=== PATIENT | female | born 1990 | race Caucasian/White ===

== ENCOUNTER 2023-10-08 17:40 | Emergency (ER) | payer OTHER, SELFPAY ==
[2023-10-08 17:47] VITALS: BP 124/72; BMI 25.9
[2023-10-08 18:13] LABS: % Basophils 0.5 % (0-2); % Eosinophils 0.8 % (0-6); % Immature Granulocytes 0.2 % (0-0.5); % Lymphocytes 29.3 % (20.5-51.1); % Monocytes 7.3 % (1.7-9.3); % Neutrophils 61.9 % (42.2-75.2); Absolute Eosinophils 0.1 10^3/uL (0-0.7); Absolute Lymphocytes 1.8 10^3/uL (1.2-3.4); Absolute Monocytes 0.4 10^3/uL (0.1-0.6); Absolute Neutrophils 3.7 10^3/uL (1.4-6.5); Hematocrit 40.3 % (37.0-47.0); Hemoglobin 13.8 g/dL (12.0-16.0); Mean Corp Hgb Conc. 34.2 g/dL (33.0-37.0); Mean Corpuscular Hgb 29.6 pg (27.0-31.0); Mean Corpuscular Volume 86.5 fL (81.0-99.0); Mean Platelet Volume 10.7 fL (7.4-10.4); Nucleated Red Blood Cells % 0 %; Platelet Count 249 10^3/uL (130-400); Red Blood Cell Count 4.66 10^6/uL (4.20-5.40); Red Cell Dist. Width 12.5 % (11.5-14.5); Urine Albumin Trace (Neg - Trace); Urine Bilirubin 1+ (Negative); Urine Character Clear (Clear); Urine Color Yellow; Urine Glucose Negative (Negative); Urine Ketone Trace (Negative); Urine Leukocyte 1+ (Negative); Urine Nitrite Negative (Negative); Urine Occult Blood Negative (Negative); Urine Urobilinogen Negative (Neg - 1+)
[2023-10-08 18:22] LABS: Urine Squamous Cell >30 /LPF (Few)
[2023-10-08 18:23] LABS: Urine Bacteria Moderate (Negative); Urine Red Blood Cell None Seen /HPF (0-2)
[2023-10-08 18:28] LABS: ALT (SGPT) 26 U/L (0-35); AST (SGOT) 29 U/L (14-36); Albumin 4.9 g/dl (3.5-5.0); Alkaline Phosphatase 86 U/L (38-126); Blood Urea Nitrogen 8 mg/dl (7-17); Calcium 9.9 mg/dl (8.4-10.2); Carbon Dioxide 27 mmol/L (22-30); Chloride 103 mmol/L (98-107); Estimated Creatinine Clearance 86 ml/min; Glucose 114 mg/dl (70-99); Lipase 63 U/L (23-300); Potassium 4.2 mmol/L (3.5-5.1); Sodium 136 mmol/L (135-145); Total Bilirubin 0.7 mg/dl (0.2-1.3); Total Protein 8.1 g/dl (6.3-8.2); eGFR > 60.00
[2023-10-08] MEDS: TORADOL 30 MG IM (19:54)
--- NOTE | 2023-10-08 20:07 | ED.GENMED ---
History of Present Illness
General
Chief Complaint: Back Pain
Time Seen by Provider: 10/08/23 18:47
Travel History
Have you had any contact with someone who has COVID-19?: No
Do you have any symptoms of coronavirus? Fever > 100 degrees, chills, cough, shortness of breath, sore throat, loss of taste or smell, muscle aches, or headache?: No
History of Present Illness
History of Present Illness:
33-year-old female presents the emergency department for evaluation of left-sided back pain for the past month. Over the past week the pain has been radiating toward the epigastrium and left upper quadrant of the abdomen. Her primary care
physician recommended she come to the emergency department for further evaluation. Pain is nonpleuritic, worse with bending or twisting of the spine. She also noticed immediate worsening of abdominal pain with any p.o. intake. Denies any history
of intra-abdominal surgeries. No reported fevers or chills. She has had vomiting and diarrhea
Past History
Past History
ED Past Medical History: Psychiatric, Other (Episode LUE pain presented to ED, kidney stones) and Other (Chronic back pain)
ED Past Surgical History: None
Social History
Tobacco: Non-smoker
Alcohol: None
Drug: None
Personal: Single
Family History
Family History: Other (Reviewed and non-contributory)
Review of Systems
Review of Systems
Allergies reviewed?: Yes
All Other Systems: ROS reviewed and negative except as documented in HPI and ROS
Phy Exam
Physical Exam
Physical Exam:
GEN: Well appearing, NAD, WDWN
HEENT: Oral mucosa moist, no scleral icterus
Cardiac: Regular rate
Lung: No respiratory distress, no tachypnea
Abdomen: Soft, nontender, mild tenderness to left upper quadrant and epigastrium.
MSK: No gross deformity or injuries. There is focal tenderness to the left upper lumbar paraspinous musculature, no CVA tenderness with percussion
Skin: Good color, no pallor or jaundice, no rashes
Neuro: AO x3, moves all extremities freely
Psych: Calm, cooperative
Course
Orders/Labs/Results
Orders:
Orders
10/08/23 18:01
Complete Blood Count/With Diff Urgent
Comprehensive Metabolic Panel Urgent
HCG, Serum Qualitative Screen Urgent
Comment: ADD ON
Lipase Urgent
Urinalysis Reflex To Culture Urgent
Date Specimen was Collected: 10/08/23
Time Specimen was Collected: 17:52
Urine Microscopic Reflex Cult Urgent
Urine Culture Urgent
ANDREZ Source: U
Specimen Description:
Date Specimen was Collected: 10/08/23
Time Specimen was Collected: 17:52
10/08/23 19:48
CT Abd/pel Without Iv Or Oral Urgent
Comment:
Reason For Exam: L flank pain
Ketorolac [Toradol] 30 mg IM NOW STA
10/08/23 20:08
Add On- LAB Urgent
Tests Added?: HCG qual
10/08/23 21:09
Oxycodone [Roxicodone] 5 mg PO NOW STA
Abnormal Lab Results
10/08/23
18:01
MPV 10.7 H fL
(7.4-10.4)
Glucose 114 H mg/dl
(70-99)
Urine Ketones Trace A
(Negative)
Urine Bilirubin 1+ A
(Negative)
Leukocyte Esterase Rfl 1+ A
(Negative)
Urine Bacteria (Reflex) Moderate A
(Negative)
10/08/23 18:01
10/08/23 18:01
Vital Signs
Initial and Last Documented VS:
Initial Vital Signs
Temp Pulse Resp BP Pulse Ox
98.6 F 81 16 124/72 97
10/08/23 17:47 10/08/23 17:47 10/08/23 17:47 10/08/23 17:47 10/08/23 17:47
Last Documented Vital Signs
Temp Pulse Resp BP Pulse Ox
98.6 F 81 16 124/72 97
10/08/23 17:47 10/08/23 17:47 10/08/23 17:47 10/08/23 21:46 10/08/23 17:47
MDM/Problems Addressed
MDM/Problems Addressed:
Patient's exam yields tender mid back as well as epigastrium, her CT scan shows no obvious abnormalities to suggest a cause. She certainly may have some degree of gastritis or peptic ulcer disease given the worsening pain immediately after eating
or drinking however this does not explain the reproducible back pain. Will treat supportively, recommend outpatient PCP follow-up
*Critical Care Note
Total Time (30-74mins, 75-104mins- exclusive of procedures): Not Applicable
ED Attending Note
-
Portions of this chart may have been created with voice recognition software.� Occasional wrong word or��sound alike� substitutions may have occurred due to the inherent limitations of voice recognition software.
Discharge Plan
Departure
Patient Disposition: Home (Routine Discharge)
Date of Disposition: 10/08/23
Time of Disposition: 22:16
Patient with high blood pressure during this ER visit?: No
Discharge Problem:
Acute mid back pain
Instructions: Upper Back Pain (DC)
Prescriptions:
New
pantoprazole 40 mg tablet,delayed release (DR/EC)
40 mg PO DAILY Qty: 14 0RF
sucralfate [Carafate] 1 gram tablet
1 g PO AC Qty: 60 0RF
oxycodone-acetaminophen [Percocet] 5-325 mg tablet
1 tab PO Q6HPRN PRN (Reason: pain) Qty: 8 0RF
No Action
buspirone 30 mg Tablet
30 mg PO BID
Effexor XR
100 mg PO DAILY
WALLACE (28)
1 tab PO DAILY
pregabalin
150 mg PO BID
Vyvanse 30 mg Capsule
30 mg PO DAILY
diclofenac sodium 75 mg tablet,delayed release (DR/EC)
75 mg PO BID PRN (Reason: pain) Qty: 30 0RF
Referrals:
Aurea Gamble MD [Family Provider] -
Activity Restrictions/Additional Instructions:
We discussed that your abdominal pain may be related to gastritis or stomach ulcers and we are prescribing medications to treat this.
Interventions
Interventions:
*Risk Screen - Suicide Last Done: 10/08/23 17:47
*General Assessment Last Done: 10/08/23 21:46
*Neglect/Abuse Screening Last Done: 10/08/23 17:47
*ED COVID-19 Vaccine History Last Done: 10/08/23 17:47
*Nursing Disposition Last Done: 10/08/23 21:46
ED-Musculoskeletal Assessment Last Done: 10/08/23 20:15
Discharge Date and Time
Discharge Date/Time: 10/08/23 22:44
[2023-10-08 20:46] LABS: HCG, Serum Qualitative Screen Negative
[2023-10-08] MEDS: ROXICODONE 5 MG PO (21:15)
[2023-10-08 21:46] VITALS: BP 124/72
== END 2023-10-08 22:44 | disposition home or self-care (01) ==
LOC: EMR 17:40
PROVIDERS: Emergency Medicine; EMERGENCY PHYSICIAN Emergency Medicine; FAMILY PHYSICIAN Family Medicine
DX: M54.6 Pain in thoracic spine (principal); G89.29 Other chronic pain; Z87.442 Personal history of urinary calculi
CPT/HCPCS: 99284; 96372; 74176; 80053; 81003; 81015; 83690; 84703; 85025; 87086

== ENCOUNTER → 2024-01-03 06:33 | Day surgery (SDC) | payer OTHER, SELFPAY | LOC: GI 06:33 | PROVIDERS: ATTENDING PHYSICIAN Internal Medicine | DX: R11.2 Nausea with vomiting, unspecified (principal); R42 Dizziness and giddiness; Z53.9 Procedure and treatment not carried out, unspecified reason | CPT/HCPCS: 45378; G0378 ==

== ENCOUNTER 2024-01-03 14:17 | Emergency (ER) | payer OTHER, SELFPAY ==
[2024-01-03 14:24] VITALS: BP 90/48; BMI 25.1
--- NOTE | 2024-01-03 15:01 | ED.GENMED ---
History of Present Illness
General
Chief Complaint: Fainting Sensation
Time Seen by Provider: 01/03/24 14:32
Travel History
Have you had any contact with someone who has COVID-19?: No
Do you have any symptoms of coronavirus? Fever > 100 degrees, chills, cough, shortness of breath, sore throat, loss of taste or smell, muscle aches, or headache?: No
History of Present Illness
History of Present Illness:
33-year-old female history of POTS presenting with lightheadedness and near syncope. Patient states that she was scheduled to have a colonoscopy today. Patient states that she started the prep last night around 6 PM. Patient states that since
then she has been very dizzy despite receiving 2 L normal saline IV in endoscopy suite. Patient reports chronic nausea. Patient denies chest pain, shortness of breath, or abdominal pain.
Past History
Past History
ED Past Medical History: Psychiatric, Other (Episode LUE pain presented to ED, kidney stones) and Other (Chronic back pain)
ED Past Surgical History: None
Social History
Tobacco: Non-smoker
Alcohol: None
Drug: None
Personal: Single
Family History
Family History: Other (Reviewed and non-contributory)
Phy Exam
Physical Exam
Physical Exam:
General: Alert, no acute distress
Head: NCAT
Eyes: clear conjunctiva
Neck: supple
Cardiac: regular rate and rhythm, no murmur
Lungs: clear to auscultation bilaterally. No wheezes, rales, or rhonchi. Speaking full unlabored sentences. No respiratory distress.
Abdomen: soft, nondistended nontender. No rebound or guarding.
MSK: no lower extremity edema bilaterally. No deformity
Skin: warm, dry
Neuro: Alert and oriented x3. no focal deficits
Course
Orders/Labs/Results
Orders:
Orders
01/03/24 15:00
Test Result ONCE
06/03/24 15:02
Ondansetron Injectable [Zofran] 4 mg IV NOW STA
Test Result ONCE
01/03/24 15:09
CBC/With Diff [Complete Blood Count/With Diff] Urgent
CMP [Comprehensive Metabolic Panel] Urgent
HCG, Serum Qualitative Screen Urgent
Magnesium Urgent
Abnormal Lab Results
01/03/24
15:09
WBC 3.5 L 10^3/uL
(4.8-10.8)
RBC 3.86 L 10^6/uL
(4.20-5.40)
Hgb 11.7 L g/dL
(12.0-16.0)
Hct 35.1 L %
(37.0-47.0)
MPV 11.2 H fL
(7.4-10.4)
Absolute Lymphs (auto) 0.9 L 10^3/uL
(1.2-3.4)
Chloride 112 H mmol/L
(98-107)
Carbon Dioxide 20 L mmol/L
(22-30)
BUN 6 L mg/dl
(7-17)
Glucose 108 H mg/dl
(70-99)
Calcium 8.3 L mg/dl
(8.4-10.2)
01/03/24 15:09
01/03/24 15:09
Vital Signs
Initial and Last Documented VS:
Initial Vital Signs
Temp Pulse Resp BP Pulse Ox
98.2 F 67 14 9048 98
01/03/24 14:24 01/03/24 14:24 01/03/24 14:24 01/03/24 14:24 01/03/24 14:24
Last Documented Vital Signs
Temp Pulse Resp BP Pulse Ox
98.2 F 67 14 90/48 98
01/03/24 14:24 01/03/24 14:24 01/03/24 14:24 01/03/24 14:24 01/03/24 14:24
MDM/Problems Addressed
Differential Diagnosis Includes:
Patient presents to the Emergency Department with dizziness
Number and Complexity of Problems Addressed at the Encounter
� Acute Exacerbation and/or Progression of Chronic Illness: POTS
� Differential Diagnosis includes: Orthostatic hypotension, dysautonomia, electrolyte abnormality
Amount and/or Complexity of Data to be Reviewed and Analyzed
� I performed an independent evaluation of and my interpretation is:
EKG:
CT:
Xrays:
Laboratory Studies:
Other:
Risk of Complications and/or Morbidity or Mortality of Patient Management
� Social Determinants of health affecting care:
� Discussion with other providers (PCP, Hospitalists, Consultants, etc):
� Escalation of care including admission/observation vs risk of discharge considered: 33yoF hx POTS presenting with dizziness described as lightheadedness starting today. Of note, patient completed colonoscopy prep yesterday. Otherwise no chest
pain, shortness of breath, palpitations, vomiting, or abdominal pain. Patient received 2L NS in endoscopy suite prior to arrival. Labs reviewed, noncontributory. Patient received additional 500mL NS in ED. Upon reevaluation, patient reports
dizziness resolved, now able to sit up. Ambulatory with steady gait. Requesting discharge home. Discharge home with PCP follow up. Suspect intravascular depletion secondary to colonoscopy prep exacerbating known POTS that resolved with IV fluids.
*Critical Care Note
Total Time (30-74mins, 75-104mins- exclusive of procedures): Not Applicable
ED Attending Note
-
Portions of this chart may have been created with voice recognition software.� Occasional wrong word or��sound alike� substitutions may have occurred due to the inherent limitations of voice recognition software.
Discharge Plan
Departure
Patient Disposition: Home (Routine Discharge)
Date of Disposition: 01/03/24
Time of Disposition: 16:29
Patient with high blood pressure during this ER visit?: No
Discharge Problem:
Dizziness
Instructions: Orthostatic hypotension
Prescriptions:
No Action
buspirone 30 mg Tablet
30 mg PO BID
Effexor XR
100 mg PO DAILY
WALLACE (28)
1 tab PO DAILY
pregabalin
150 mg PO BID
Vyvanse 30 mg Capsule
30 mg PO DAILY
diclofenac sodium 75 mg tablet,delayed release (DR/EC)
75 mg PO BID PRN (Reason: pain) Qty: 30 0RF
pantoprazole 40 mg tablet,delayed release (DR/EC)
40 mg PO DAILY Qty: 14 0RF
sucralfate [Carafate] 1 gram tablet
1 g PO AC Qty: 60 0RF
oxycodone-acetaminophen [Percocet] 5-325 mg tablet
1 tab PO Q6HPRN PRN (Reason: pain) Qty: 8 0RF
Referrals:
Aurea Gamble MD [Family Provider] -
Activity Restrictions/Additional Instructions:
Continue drinking water and/or electrolyte containing solution such as gatorade/pedialyte
Follow up with primary care doctor in 1-2 days
Return to the emergency department for persistent vomiting or new/worsening symptoms
Interventions
Interventions:
*Risk Screen - Suicide Last Done: 01/03/24 16:51
*General Assessment Last Done: 01/03/24 16:51
*Neglect/Abuse Screening Last Done: 01/03/24 16:51
ED- Fall Risk Assessment Last Done: 01/03/24 16:51
*ED COVID-19 Vaccine History Last Done: 01/03/24 16:51
*Nursing Disposition Last Done: 01/03/24 16:51
ED- Cardiac Assessment Last Done: 01/03/24 16:50
ED- Neurological Assessment Last Done: 01/03/24 16:50
Discharge Date and Time
Discharge Date/Time: 01/03/24 16:51
Print Language: NIGERIAN
[2024-01-03] MEDS: ZOFRAN 4 MG IV (15:09)
[2024-01-03 15:22] LABS: % Basophils 0.6 % (0-2); % Eosinophils 0.6 % (0-6); % Lymphocytes 25.1 % (20.5-51.1); % Monocytes 4.9 % (1.7-9.3); % Neutrophils 68.8 % (42.2-75.2); Absolute Lymphocytes 0.9 10^3/uL (1.2-3.4); Absolute Monocytes 0.2 10^3/uL (0.1-0.6); Absolute Neutrophils 2.4 10^3/uL (1.4-6.5); Hematocrit 35.1 % (37.0-47.0); Hemoglobin 11.7 g/dL (12.0-16.0); Mean Corp Hgb Conc. 33.3 g/dL (33.0-37.0); Mean Corpuscular Hgb 30.3 pg (27.0-31.0); Mean Corpuscular Volume 90.9 fL (81.0-99.0); Mean Platelet Volume 11.2 fL (7.4-10.4); Nucleated Red Blood Cells % 0 %; Platelet Count 165 10^3/uL (130-400); Red Blood Cell Count 3.86 10^6/uL (4.20-5.40); Red Cell Dist. Width 11.9 % (11.5-14.5); White Blood Cell Count 3.5 10^3/uL (4.8-10.8)
[2024-01-03 15:40] LABS: HCG, Serum Qualitative Screen Negative
[2024-01-03 15:45] LABS: ALT (SGPT) 21 U/L (0-35); AST (SGOT) 26 U/L (14-36); Albumin 3.8 g/dl (3.5-5.0); Alkaline Phosphatase 78 U/L (38-126); Blood Urea Nitrogen 6 mg/dl (7-17); Calcium 8.3 mg/dl (8.4-10.2); Carbon Dioxide 20 mmol/L (22-30); Chloride 112 mmol/L (98-107); Estimated Creatinine Clearance > 125 ml/min; Glucose 108 mg/dl (70-99); Magnesium 1.8 mg/dl (1.6-2.3); Potassium 4.1 mmol/L (3.5-5.1); Sodium 138 mmol/L (135-145); Total Bilirubin 0.6 mg/dl (0.2-1.3); Total Protein 6.4 g/dl (6.3-8.2); eGFR > 60.00
== END 2024-01-03 16:51 | disposition home or self-care (01) ==
LOC: EMR 14:17
PROVIDERS: EMERGENCY PHYSICIAN Emergency Medicine; FAMILY PHYSICIAN Family Medicine
DX: R42 Dizziness and giddiness (principal); R11.0 Nausea; G90.A Postural orthostatic tachycardia syndrome [POTS]; M54.9 Dorsalgia, unspecified; G89.29 Other chronic pain; Z87.442 Personal history of urinary calculi; Z88.1 Allergy status to other antibiotic agents; Z88.2 Allergy status to sulfonamides
CPT/HCPCS: 99284; 96374; 80053; 83735; 84703; 85025

== ENCOUNTER → 2024-04-13 06:26 | Day surgery (SDC) | payer OTHER, SELFPAY | LOC: GI 06:26 | PROVIDERS: ATTENDING PHYSICIAN Internal Medicine | DX: R19.7 Diarrhea, unspecified (principal); R11.0 Nausea | CPT/HCPCS: 43239; 88305; 88342 ==

== ENCOUNTER → 2025-07-23 15:54 | Outpatient (REF) | payer OTHER, SELFPAY | LOC: RAD 15:54 | PROVIDERS: ATTENDING PHYSICIAN Family Medicine | DX: M25.561 Pain in right knee (principal); M25.531 Pain in right wrist; M25.532 Pain in left wrist | CPT/HCPCS: 73110; 73564 ==